=== PATIENT | male | born 1955 | race Two or more races ===

== ENCOUNTER 2022-06-13 22:18 | Emergency (ER) | payer OTHER ==
[~2022-06-13] VITALS: Ht 180.3 cm; Wt 95.3 kg
[2022-06-13] MEDS ORDERED: METFORMIN HCL1000 M3 PO (22:49)
[2022-06-13] MEDS ORDERED: LOTREL 10-40 M1 EACH (22:49)
[2022-06-14] MEDS ORDERED: KETO10TA2 PO (02:45)
[2022-06-14] MEDS ORDERED: TAMS0.4C PO (02:45)
[2022-06-14] MEDS ORDERED: CIPRO500 MG PO (02:45)
== END 2022-06-14 02:49 | disposition home or self-care (01) ==
LOC: ER 22:18
DX: N20.2 Calculus of kidney with calculus of ureter (principal); N13.30 Unspecified hydronephrosis; I10 Essential (primary) hypertension; Z88.0 Allergy status to penicillin